=== PATIENT | female | born 1940 | race Caucasian/White ===

== ENCOUNTER → 2017-04-11 | Outpatient (CLI) | payer OTHER ==
[~2017-04-11] MED LIST: ASCA500 PO; ATOR-22 PO; C-Q 10; CLOP1TAB15 PO; MECL12.5 PO; MULT-506 PO; OMEG10007 PO; OMEP10CA2 PO; Vit B 12; [UNRECOGNIZED DRUG - OTHER]; metropolol
--- NOTE | 2017-04-11 12:42 | DIAGNOSTIC IMAGING REPORT ---
CHEST 2 VIEWS ROUTINE HISTORY: Cough. COMPARISON: Chest 05/22/2011. FINDINGS: The lungs are clear. The heart is normal in size. No pleural effusions. No pneumothorax. Coronary artery stent is noted. IMPRESSION: No acute process. Electronically signed by: Raza Barton M.D. 04/11/2017 12:41 PM Dictated Date/Time: 04/11/2017 12:38 PM
--- NOTE | 2017-04-11 12:52 | DIAGNOSTIC IMAGING REPORT ---
SINUSES MIN 3 VIEWS ROUTINE CLINICAL HISTORY: R05 [id number] dyspnea COMPARISON STUDY: None FINDINGS: Negative study. All major sinuses are considered clear. There are no air-fluid levels. There are no destructive lesions. IMPRESSION: Normal study The above report was generated using voice recognition software. It may contain grammatical, syntax or spelling errors. Electronically signed by: Johny Pastor M.D. 04/11/2017 12:51 PM Dictated Date/Time: 04/11/2017 12:47 PM
== END | disposition home or self-care (01) ==
LOC: C.LAB1850 12:08
PROVIDERS: ATTEND Physician Assistant
DX: R05 Cough (principal)

== ENCOUNTER 2024-12-06 19:25 | Observation (INO) ==
[2024-12-06] MEDS: diphenhydrAMINE 50 MG/ML VIAL IV ONE (19:54)
[2024-12-06 20:02] LABS: Hematocrit (blood only) 40.9 % (37.0-47.0); Hemoglobin 13.6 g/dl (12.0-16.0); Immature Granulocytes # (auto) 0.02 K/uL (0.01-0.20); Immature Granulocytes % (auto) 0.5 %; Mean Corpuscular Hemoglobin 30.6 pg (25.0-34.0); Mean Corpuscular Volume 91.9 fL (80.0-100.0); Platelet Count 163 K/uL (130-400); RDW Standard Deviation 44.9 fL (36.4-46.3); Red Blood Count 4.45 M/uL (4.20-5.40); White Blood Count 4.33 K/ul (4.8-10.8)
[2024-12-06] MEDS: OPTIRAY 320 125ml IV ONE (20:07)
[2024-12-06 20:37] LABS: Alanine Aminotransferase 13 U/L (7-52); Bilirubin,Total 0.6 mg/dl (0.2-1.0); Blood Urea Nitrogen 22 mg/dl (6-23); Calcium 9.5 mg/dl (8.6-10.3); Carbon Dioxide 25 mmol/L (21-32); Chloride 103 mmol/L (98-107); Creatinine Clr Calc Pharmacy 40.9 ml/min; Glucose 91 mg/dl (70-99(Fasting)); Total Protein 7.5 gm/dl (6.0-8.3)
--- NOTE | 2024-12-06 20:37 | CT Scan Report ---
Exam(s): CT HEAD Without Contrast EXAM: CT Head Without Intravenous Contrast CLINICAL HISTORY: Reason for exam: neuro deficit, acute stroke suspected. TECHNIQUE: Axial computed tomography images of the head/brain without intravenous contrast. CTDI is 38.43 mGy and DLP is 985.28 mGy-cm. Automated exposure control was utilized for the study. A dose lowering technique was utilized adhering to the principles of ALARA. COMPARISON: None. FINDINGS: Brain: Age-related parenchymal volume loss. Periventricular and deep cerebral white matter hypoattenuation suggesting chronic small vessel ischemic change. Buckley-white matter differentiation maintained. No hemorrhage, mass effect, parenchymal edema, or midline shift. Ventricles: No hydrocephalus. Bones/joints: No acute fracture. Soft tissues: Unremarkable. Vasculature: Intracranial atherosclerosis. Sinuses: Unremarkable as visualized. Mastoid air cells: No significant mastoid effusion. Orbits: Lens replacements. IMPRESSION: No acute intracranial process. Communications: Call Doctor Stroke Electronically signed by: Nelson Najera M.D. 12/06/24 20:36 PM
--- NOTE | 2024-12-06 20:39 | CT Scan Report ---
Exam(s): CTA HEAD With Contrast IV Amt: 119ml optiray 320 EXAM: CT Angiography Head With Intravenous Contrast CLINICAL HISTORY: Reason for exam: neuro deficit, acute stroke suspected. TECHNIQUE: Axial computed tomographic angiography images of the head with intravenous contrast. CTDI is 38.43 mGy and DLP is 985.28 mGy-cm. Automated exposure control was utilized for the study. A dose lowering technique was utilized adhering to the principles of ALARA. MIP reconstructed images were created and reviewed. CONTRAST: Patient received 119ml optiray 320 of IV contrast COMPARISON: Same-day head CT. FINDINGS: Right internal carotid artery: Extensive calcific plaquing intracranial right ICA producing mild stenosis in the cavernous segment. No aneurysm. Right anterior cerebral artery: Unremarkable. No occlusion or significant stenosis. No aneurysm. Right middle cerebral artery: Unremarkable. No occlusion or significant stenosis. No aneurysm. Right posterior cerebral artery: Unremarkable. No occlusion or significant stenosis. No aneurysm. Right vertebral artery: Unremarkable as visualized. Left internal carotid artery: Extensive calcific plaquing intracranial left ICA without significant stenosis. No aneurysm. Left anterior cerebral artery: Unremarkable. No occlusion or significant stenosis. No aneurysm. Left middle cerebral artery: Unremarkable. No occlusion or significant stenosis. No aneurysm. Left posterior cerebral artery: Unremarkable. No occlusion or significant stenosis. No aneurysm. Left vertebral artery: Unremarkable as visualized. Basilar artery: Unremarkable. No occlusion or significant stenosis. No aneurysm. IMPRESSION: Patent intracranial circulation. Communications: Call Doctor Stroke Electronically signed by: Nelson Najera M.D. 12/06/24 20:38 PM
--- NOTE | 2024-12-06 20:41 | CT Scan Report ---
Exam(s): CTA NECK With Contrast IV Amt: 119ml optiray 320 EXAM: CT Angiography Neck With Intravenous Contrast CLINICAL HISTORY: Reason for exam: neuro deficit, acute stroke suspected. TECHNIQUE: Routine carotid CT angiography protocol was performed with intravenous contrast. NASCET criteria using the distal ICAs for comparison were used for evaluation of stenoses. CTDI is 38.43 mGy and DLP is 985.28 mGy-cm. Automated exposure control was utilized for the study. A dose lowering technique was utilized adhering to the principles of ALARA. MIP reconstructed images were created and reviewed. CONTRAST: Patient received 119ml optiray 320 of IV contrast COMPARISON: None. FINDINGS: VASCULATURE: Right common carotid artery: Unremarkable. No occlusion or significant stenosis. No dissection. Right internal carotid artery: Calcific plaque producing severe stenosis of the right ICA origin. No dissection. Right external carotid artery: Stenotic origin. No occlusion. Right vertebral artery: Unremarkable. No occlusion or significant stenosis. No dissection. Left common carotid artery: Patent stented distal left common carotid artery. No occlusion or significant stenosis. No dissection. Left internal carotid artery: Patent stented proximal left ICA. Extracranial segment is patent with no occlusion or significant stenosis. No dissection. Left external carotid artery: Stenotic origin. No occlusion. Left vertebral artery: Unremarkable. No occlusion or significant stenosis. No dissection. Aorta: Bovine aortic arch anatomy. NECK: Bones/joints: Unremarkable. No acute fracture. Soft tissues: Unremarkable. Lung apices: Clear. CAROTID STENOSIS REFERENCE USING NASCET CRITERIA: % ICA stenosis = (1 - narrowest ICA diameter/diameter of distal cervical ICA) x 100. Mild - <50% stenosis. Moderate - 50-69% stenosis. Severe - 70-94% stenosis. Near occlusion - 95-99% stenosis. Occluded - 100% stenosis. IMPRESSION: Calcific plaque producing severe stenosis at the right ICA origin. Communications: Call Doctor Stroke Electronically signed by: Nelson Najera M.D. 12/06/24 20:40 PM
[2024-12-06] MEDS: ASPIRIN 81 MG CHEW PO STA (21:01)
--- NOTE | 2024-12-06 21:23 | XRay Report ---
Exam(s): XR CXR 1 VIEW EXAM: XR Chest, 1 View CLINICAL HISTORY: Reason for exam: neuro deficit, acute stroke suspected. TECHNIQUE: Frontal view of the chest. COMPARISON: No relevant prior studies available. FINDINGS: Lungs: No consolidation. Pleural space: No significant pleural effusion. No pneumothorax. Heart: No cardiomegaly or pulmonary vascular congestion. Bones/joints: No acute fracture. No dislocation. IMPRESSION: No evidence of acute cardiopulmonary disease. Electronically signed by: Nelson Najera M.D. 12/06/24 21:23 PM
--- NOTE | 2024-12-06 22:12 | Emergency Department Note ---
History of Present Illness General Chief complaint: TIA Symptoms Stated complaint: EYE IS BLURRY, BALANCE ISSUES, SPEACH, Time Seen by Provider: 12/06/24 19:31 History of Present Illness Provider complaint: Stroke symptoms Maximum Pain Intensity: 5 84-year-old female presents emergency department for stroke symptoms. Patient reports at 1500 she has felt like she could not get her words out and that she was having blurry vision. She reports double vision. Patient states she went to go see her technology assistant Dr. Altman who referred her to the emergency department. No headache. No falls or traumas. No blood thinners. Home Medications Medication Instructions Recorded Confirmed Type aspirin 81 mg tablet 81 mg PO BID 12/26/18 06/23/24 History atorvastatin 40 mg tablet 40 mg PO DAILY #30 tabs 12/26/18 06/23/24 History citalopram 20 mg tablet 20 mg PO DAILY #90 tabs 12/26/18 06/23/24 History clopidogrel 75 mg tablet 75 mg PO DAILY #90 tabs 12/26/18 06/23/24 History coenzyme Q10 100 mg capsule PO .TAKE DIRECTED. 12/26/18 06/23/24 History epinephrine 0.3 mg/0.3 mL IM .INJECT 0.3ML INTRAMU #1 ea 12/26/18 06/23/24 History injection, auto-injector levalbuterol HCl 1.25 mg/3 mL 1.25 mg inhalation .COMPLEX PRN 12/26/18 06/23/24 History solution for nebulization melatonin 3 mg tablet PO .TAKE DIRECTED. 12/26/18 06/23/24 History metoprolol succinate 25 mg PO .TAKE 1 TABLET DAILY. 12/26/18 06/23/24 History tablet,extended release 24 hr nitroglycerin 0.4 mg sublingual sublingual .PLACE 1 TABLET UNDER 12/26/18 06/23/24 History tablet omega-3 fatty acids 1,000 mg 1,000 mg PO DAILY 12/26/18 06/23/24 History capsule (Fish Oil Concentrate) pantoprazole 40 mg tablet,delayed PO .TAKE 1 TABLET DAILY. #90 tabs 12/26/18 06/23/24 History release diclofenac sodium 1 % topical gel 2 gm topical QID #100 grams 05/15/19 06/23/24 Rx (Voltaren) cyanocobalamin (vitamin B-12) 1,000 mcg PO DAILY 09/11/19 06/23/24 History 1,000 mcg capsule levothyroxine 88 mcg tablet PO .TAKE 1 TABLET DAILY. 03/30/22 06/23/24 History Flutter Valve #1 ea 04/06/22 06/23/24 Rx tocilizumab 162 mg/0.9 mL mg subcut .once a week 03/13/23 06/23/24 History subcutaneous syringe (Actemra) furosemide 20 mg tablet (Lasix) 20 mg PO DAILY 03/20/24 06/23/24 History prasugrel HCl 10 mg tablet 10 mg PO DAILY 03/20/24 06/23/24 History (Effient) albuterol sulfate 90 mcg/actuation 2 puff inhalation Q6H PRN 06/25/24 06/25/24 Rx aerosol inhaler Shortness Of Breath Or Wheezing #18 grams fluticasone 250 mcg-salmeterol 50 1 inh inhalation BID #60 ea 06/25/24 06/25/24 Rx mcg/dose blistr powdr for inhalation (Wixela Inhub) umeclidinium 62.5 mcg/actuation 1 inh inhalation DAILY #30 ea 06/25/24 06/25/24 Rx blister powder for inhalation (Incruse Ellipta) ipratropium 0.5 mg-albuterol 3 mg 3 ml inhalation Q8H PRN shortness 07/06/24 Rx (2.5 mg base)/3 mL nebulization of breath or wheezing #180 mL soln Allergies Allergy/AdvReac Type Severity Reaction Status Date / Time bee venom protein (honey bee) Allergy Unknown HIVES Verified 06/23/24 16:05 codeine Allergy Unknown HIVES Verified 06/23/24 16:05 cortisone Allergy Unknown Verified 06/23/24 16:05 hydromorphone [From Dilaudid] Allergy Unknown Verified 06/23/24 16:05 iodine Allergy Unknown Verified 06/23/24 16:05 methylprednisolone Allergy Unknown RASH Verified 06/23/24 16:05 morphine Allergy Unknown "GO BAZERK" Verified 06/23/24 16:05 Opioids - Morphine Analogues Allergy Unknown Verified 06/23/24 16:05 shellfish derived Allergy Unknown RASH Verified 06/23/24 16:05 Past Med/Surg History Problem List (Updated 12/06/24 @ 22:12 by Bayron Brizuela MD) Stroke-like symptoms (Acute) Multiple pulmonary nodules Exertional shortness of breath Allergic rhinitis with postnasal drip Hypersomnia COPD with emphysema History of tobacco use Pulmonary nodule seen on imaging study Chronic bronchitis Pleurisy Costochondritis Pleuritic chest pain Social History Smoking Status: Never smoker Tobacco Type: Cigarettes Age Started Using Tobacco: 14; Age Quit Using Tobacco: 62; packs per day: 1; Preferred Language: Luxembourgish Feels Safe at Home: Yes Physical Exam Vital Signs Vital Signs - 24 hr 12/06/24 19:29 12/06/24 19:37 12/06/24 19:39 Temperature 36.6 C Temperature Source Temporal Artery Scan Pulse Rate 60 63 63 Pulse Rate from SpO2 Sensor 62 Respiratory Rate 18 19 Respiratory Effort / Characteristics Non-Labored Spontaneous Respiratory Depth Normal Respiratory Pattern Regular Blood Pressure 153/67 H Blood Pressure Mean 95 Blood Pressure Position Sitting Pulse Oximetry 93 98 Oxygen Delivery Method Room Air Sepsis Recent Fever Within 48 Hours No Sepsis New/Unexplained Change in Mental Status N/A Sepsis Action Taken by Nursing No Action Required 12/06/24 19:45 12/06/24 19:57 12/06/24 20:13 Temperature Temperature Source Pulse Rate 57 L 56 L 74 Pulse Rate from SpO2 Sensor 56 L Respiratory Rate 15 18 12 Respiratory Effort / Characteristics Respiratory Depth Respiratory Pattern Blood Pressure 163/70 H 184/87 H Blood Pressure Mean 101 113 Blood Pressure Position Pulse Oximetry 97 Oxygen Delivery Method Sepsis Recent Fever Within 48 Hours Sepsis New/Unexplained Change in Mental Status Sepsis Action Taken by Nursing 12/06/24 20:27 12/06/24 20:45 12/06/24 20:54 Temperature Temperature Source Pulse Rate 68 69 66 Pulse Rate from SpO2 Sensor 67 65 Respiratory Rate 20 20 19 Respiratory Effort / Characteristics Respiratory Depth Respiratory Pattern Blood Pressure Blood Pressure Mean Blood Pressure Position Pulse Oximetry 92 94 Oxygen Delivery Method Sepsis Recent Fever Within 48 Hours Sepsis New/Unexplained Change in Mental Status Sepsis Action Taken by Nursing 12/06/24 21:02 12/06/24 21:15 12/06/24 21:45 Temperature Temperature Source Pulse Rate 80 70 70 Pulse Rate from SpO2 Sensor 69 Respiratory Rate 24 28 H 15 Respiratory Effort / Characteristics Respiratory Depth Respiratory Pattern Blood Pressure 162/57 H 169/65 H 152/57 H Blood Pressure Mean 108 104 88 Blood Pressure Position Pulse Oximetry 94 97 96 Oxygen Delivery Method Room Air Room Air Room Air Sepsis Recent Fever Within 48 Hours Sepsis New/Unexplained Change in Mental Status Sepsis Action Taken by Nursing Physical Exam GENERAL: oriented to person, place, and time. appears well-developed and well- nourished. HENT: Exam performed. - Head: Normocephalic and atraumatic. EYES: Conjunctivae and EOM are normal. Right eye exhibits no discharge. Left eye exhibits no discharge. No scleral icterus. Pupils are dilated 4 mm and nonreactive bilaterally. Visual acuity: Right eye: 20/200 left eye: 20/50 -1 NECK: Normal range of motion. Neck supple. No JVD present. CV: Normal rate, regular rhythm, normal heart sounds and intact distal pulses. There is no peripheral edema. Palpable radial pulses bue. PULM/CHEST: Effort normal and breath sounds normal. No respiratory distress. No stridor. no wheezes. no rales. ABD: The abdomen is soft. There is no tenderness. NEURO:NIHSS: 2 (3:1, 9:1) Course Course 1930: The patient was evaluated in room A10. A complete history and physical exam was performed Cardiac monitoring: An order was placed for continuous cardiac monitoring. The monitor shows a rate of 60 with sinus rhythm interpreted by me Patient is out of window for TNKase. No code stroke called. 2049: Vitals stable. Labs and imaging are unremarkable. Patient was referred here after being evaluate by ophthalmology and will be admitted for strokelike symptoms. Administered Medications Discontinued Medications Aspirin (Aspirin 81 Mg Chew) 324 mg PO NOW STA Stop: 12/06/24 20:46 Last Admin: 12/06/24 21:01 Dose: 324 mg Documented By: TWYLA Diphenhydramine HCl (Diphenhydramine 50 Mg/Ml Vial) 50 mg IV ONE ONE Stop: 12/06/24 19:39 Last Admin: 12/06/24 19:54 Dose: 50 mg Documented By: TWYLA Ioversol (Optiray 320 125ml) 119 ml IV ONCE ONE Stop: 12/06/24 20:08 Last Admin: 12/06/24 20:07 Dose: 119 ml Documented By: DEEPA Methylprednisolone (Methylprednisolone 125 Mg/2 Ml Vial) 40 mg IV NOW ONE Stop: 12/06/24 19:39 Last Admin: 12/06/24 19:58 Dose: 40 mg Documented By: TWYLA Medical Decision Making Laboratory Data Attestation: I reviewed the patient's lab results. 12/06/24 19:43 12/06/24 19:43 Lab Results 12/06/24 12/06/24 Range/Units 19:43 19:49 WBC 4.33 L (4.8-10.8) K/ul RBC 4.45 (4.20-5.40) M/uL Hgb 13.6 (12.0-16.0) g/dl POC Hgb 13.9 (12.0-16.0) g/dl Hct 40.9 (37.0-47.0) % POC Hct 41 (37-47) % MCV 91.9 (80.0-100.0) fL MCH 30.6 (25.0-34.0) pg MCHC 33.3 (32.0-36.0) g/dL RDW Std Deviation 44.9 (36.4-46.3) fL RDW Coeff of Raquel 13.2 (11.5-14.5) % Plt Count 163 (130-400) K/uL MPV 9.5 (9.4-12.4) fL Immature Gran % (Auto) 0.5 % Neut % (Auto) 54.1 % Lymph % (Auto) 31.6 % Berks % (Auto) 11.8 % Eos % (Auto) 1.8 % Baso % (Auto) 0.2 % Neut # (Auto) 2.34 (1.40-6.50) K/uL Lymph # (Auto) 1.37 (1.20-3.40) K/uL Berks # (Auto) 0.51 (0.11-0.59) K/uL Eos # (Auto) 0.08 (0.00-0.50) K/uL Baso # (Auto) 0.01 (0.00-0.20) K/uL Immature Gran # (Auto) 0.02 (0.01-0.20) K/uL PT Cancelled INR Cancelled APTT Cancelled PTT Ratio Cancelled POC Sodium 135 (135-144) mmol/L Sodium TNP POC Potassium 5.6 H (3.3-5.0) mmol/L Potassium TNP POC Chloride 106 (101-112) mmol/L Chloride 103 (98-107) mmol/L Carbon Dioxide 25 (21-32) mmol/L POC Total CO2 25 (24-31) mmol/L Anion Gap TNP POC Anion Gap 11.0 L (16-25) mmol/L POC BUN 32 H (7-18) mg/dl BUN 22 (6-23) mg/dl Creatinine 0.98 (0.6-1.2) mg/dl POC Creatinine 1.2 (0.6-1.3) mg/dl Est Cr Clr Drug Dosing 40.9 ml/min eGFR 57.27 BUN/Creatinine Ratio 22.4 H (10-20) Glucose 91 (70-99(Fasting)) mg/dl POC Glucose (other) 92 (70-99) mg/dl Calcium 9.5 (8.6-10.3) mg/dl POC Ioniz Calcium Cristobal 1.11 L (1.12-1.32) mmol/l Magnesium TNP Total Bilirubin 0.6 (0.2-1.0) mg/dl AST TNP ALT 13 (7-52) U/L Alkaline Phosphatase TNP Troponin I High Sens 6.6 (0-14) pg/ml Total Protein 7.5 (6.0-8.3) gm/dl Albumin TNP Globulin TNP Albumin/Globulin Ratio TNP Imaging Data Attestation: I personally reviewed and interpreted this imaging study as follows: My Impression: Chest x-ray negative. Airway clear. No pneumothorax. No consolidation. No cardiomegaly or cephalization.. No free air under the diaphragm. No fractures of the skeletal structures. Radiologist's Impression: Chest X-Ray 12/06/24 19:38 Exam(s): XR CXR 1 VIEW EXAM: XR Chest, 1 View CLINICAL HISTORY: Reason for exam: neuro deficit, acute stroke suspected. TECHNIQUE: Frontal view of the chest. COMPARISON: No relevant prior studies available. FINDINGS: Lungs: No consolidation. Pleural space: No significant pleural effusion. No pneumothorax. Heart: No cardiomegaly or pulmonary vascular congestion. Bones/joints: No acute fracture. No dislocation. IMPRESSION: No evidence of acute cardiopulmonary disease. Electronically signed by: Nelson Najera M.D. 12/06/24 21:[address] 12/06/24 19:38 CR Exam(s): CT HEAD Without Contrast EXAM: CT Head Without Intravenous Contrast CLINICAL HISTORY: Reason for exam: neuro deficit, acute stroke suspected. TECHNIQUE: Axial computed tomography images of the head/brain without intravenous contrast. CTDI is 38.43 mGy and DLP is 985.28 mGy-cm. Automated exposure control was utilized for the study. A dose lowering technique was utilized adhering to the principles of ALARA. COMPARISON: None. FINDINGS: Brain: Age-related parenchymal volume loss. Periventricular and deep cerebral white matter hypoattenuation suggesting chronic small vessel ischemic change. Buckley-white matter differentiation maintained. No hemorrhage, mass effect, parenchymal edema, or midline shift. Ventricles: No hydrocephalus. Bones/joints: No acute fracture. Soft tissues: Unremarkable. Vasculature: Intracranial atherosclerosis. Sinuses: Unremarkable as visualized. Mastoid air cells: No significant mastoid effusion. Orbits: Lens replacements. IMPRESSION: No acute intracranial process. Communications: Call Doctor Stroke Electronically signed by: Nelson Najera M.D. 12/06/24 20:36 PM Head CTA 12/06/24 19:38 CR Exam(s): CTA HEAD With Contrast IV Amt: 119ml optiray 320 EXAM: CT Angiography Head With Intravenous Contrast CLINICAL HISTORY: Reason for exam: neuro deficit, acute stroke suspected. TECHNIQUE: Axial computed tomographic angiography images of the head with intravenous contrast. CTDI is 38.43 mGy and DLP is 985.28 mGy-cm. Automated exposure control was utilized for the study. A dose lowering technique was utilized adhering to the principles of ALARA. MIP reconstructed images were created and reviewed. CONTRAST: Patient received 119ml optiray 320 of IV contrast COMPARISON: Same-day head CT. FINDINGS: Right internal carotid artery: Extensive calcific plaquing intracranial right ICA producing mild stenosis in the cavernous segment. No aneurysm. Right anterior cerebral artery: Unremarkable. No occlusion or significant stenosis. No aneurysm. Right middle cerebral artery: Unremarkable. No occlusion or significant stenosis. No aneurysm. Right posterior cerebral artery: Unremarkable. No occlusion or significant stenosis. No aneurysm. Right vertebral artery: Unremarkable as visualized. Left internal carotid artery: Extensive calcific plaquing intracranial left ICA without significant stenosis. No aneurysm. Left anterior cerebral artery: Unremarkable. No occlusion or significant stenosis. No aneurysm. Left middle cerebral artery: Unremarkable. No occlusion or significant stenosis. No aneurysm. Left posterior cerebral artery: Unremarkable. No occlusion or significant stenosis. No aneurysm. Left vertebral artery: Unremarkable as visualized. Basilar artery: Unremarkable. No occlusion or significant stenosis. No aneurysm. IMPRESSION: Patent intracranial circulation. Communications: Call Doctor Stroke Electronically signed by: Nelson Najera M.D. 12/06/24 20:38 PM Neck CTA 12/06/24 19:38 CR Exam(s): CTA NECK With Contrast IV Amt: 119ml optiray 320 EXAM: CT Angiography Neck With Intravenous Contrast CLINICAL HISTORY: Reason for exam: neuro deficit, acute stroke suspected. TECHNIQUE: Routine carotid CT angiography protocol was performed with intravenous contrast. NASCET criteria using the distal ICAs for comparison were used for evaluation of stenoses. CTDI is 38.43 mGy and DLP is 985.28 mGy-cm. Automated exposure control was utilized for the study. A dose lowering technique was utilized adhering to the principles of ALARA. MIP reconstructed images were created and reviewed. CONTRAST: Patient received 119ml optiray 320 of IV contrast COMPARISON: None. FINDINGS: VASCULATURE: Right common carotid artery: Unremarkable. No occlusion or significant stenosis. No dissection. Right internal carotid artery: Calcific plaque producing severe stenosis of the right ICA origin. No dissection. Right external carotid artery: Stenotic origin. No occlusion. Right vertebral artery: Unremarkable. No occlusion or significant stenosis. No dissection. Left common carotid artery: Patent stented distal left common carotid artery. No occlusion or significant stenosis. No dissection. Left internal carotid artery: Patent stented proximal left ICA. Extracranial segment is patent with no occlusion or significant stenosis. No dissection. Left external carotid artery: Stenotic origin. No occlusion. Left vertebral artery: Unremarkable. No occlusion or significant stenosis. No dissection. Aorta: Bovine aortic arch anatomy. NECK: Bones/joints: Unremarkable. No acute fracture. Soft tissues: Unremarkable. Lung apices: Clear. CAROTID STENOSIS REFERENCE USING NASCET CRITERIA: % ICA stenosis = (1 - narrowest ICA diameter/diameter of distal cervical ICA) x 100. Mild - <50% stenosis. Moderate - 50-69% stenosis. Severe - 70-94% stenosis. Near occlusion - 95-99% stenosis. Occluded - 100% stenosis. IMPRESSION: Calcific plaque producing severe stenosis at the right ICA origin. Communications: Call Doctor Stroke Electronically signed by: Nelson Najera M.D. 12/06/24 20:40 PM ECG Data Attestation: I personally reviewed and interpreted this ECG as follows: Rate (beats per minute): 59 Rhythm: + normal sinus ECG Intervals/blocks: + Left bundle branch block Additional Comments: MA 198 QRS 142 QTc 473 Sgarbossa negative MDM Narrative 1930: The patient was evaluated in room A10. A complete history and physical exam was performed Cardiac monitoring: An order was placed for continuous cardiac monitoring. The monitor shows a rate of 60 with sinus rhythm interpreted by me Patient is out of window for TNKase. No code stroke called. 2049: Vitals stable. Labs and imaging are unremarkable. Patient was referred here after being evaluate by ophthalmology and will be admitted for strokelike symptoms. Impression & Plan Stroke-like symptoms Discharge Plan Visit Data Chief Complaint: TIA Symptoms Stated Complaint: EYE IS BLURRY, BALANCE ISSUES, SPEACH, ED Provider: Bayron Brizuela Discharge Problem: Stroke-like symptoms Patient Disposition: Admitted As Inpatient Condition: Fair Forms Stand Alone Forms: My [facility] Prescriptions Prescriptions: No Action ipratropium-albuterol 0.5 mg-3 mg(2.5 mg base)/3 mL solution for nebulization 3 ml inhalation Q8H PRN (Reason: shortness of breath or wheezing) Qty: 180 3RF coenzyme Q10 100 mg capsule PO .TAKE DIRECTED. epinephrine 0.3 mg/0.3 mL auto-injector IM .INJECT 0.3ML INTRAMU Qty: 1 metoprolol succinate 25 mg tablet extended release 24 hr PO .TAKE 1 TABLET DAILY. nitroglycerin 0.4 mg tablet, sublingual SL .PLACE 1 TABLET UNDER omega-3 fatty acids [Fish Oil Concentrate] 1,000 mg capsule 1,000 mg PO DAILY levalbuterol HCl 1.25 mg/3 mL solution for nebulization 1.25 mg inhalation .COMPLEX PRN Patient Comments: 1.25 mg inhalation Every 4 to 6 hours PRN; Rx Instructions: 1.25 mg inhalation Every 4 to 6 hours PRN; melatonin 3 mg tablet PO .TAKE DIRECTED. pantoprazole 40 mg tablet,delayed release (DR/EC) PO .TAKE 1 TABLET DAILY. Qty: 90 aspirin 81 mg tablet 81 mg PO BID atorvastatin 40 mg tablet 40 mg PO DAILY Qty: 30 citalopram 20 mg tablet 20 mg PO DAILY Qty: 90 clopidogrel 75 mg tablet 75 mg PO DAILY Qty: 90 levothyroxine 88 mcg tablet PO .TAKE 1 TABLET DAILY. Patient Comments: on saturday and patient takes 1.5 pills cyanocobalamin (vitamin B-12) 1,000 mcg capsule 1,000 mcg PO DAILY diclofenac sodium [Voltaren] 1 % gel 2 gm TOP QID Qty: 100 4RF Rx Instructions: apply to single elbow, wrist or hand; for hand includes palm/fingers/back of hand (DME) Flutter Valve Device See Rx Instructions .MEDSUPPLY Qty: 1 0RF Rx Instructions: Use it every 6 hours when awake. Actemra 162 mg/0.9 mL syringe subcut .once a week prasugrel HCl [Effient] 10 mg tablet 10 mg PO DAILY furosemide [Lasix] 20 mg tablet 20 mg PO DAILY albuterol sulfate 90 mcg/actuation HFA aerosol inhaler 2 puff inhalation Q6H PRN (Reason: Shortness Of Breath Or Wheezing) Qty: 18 3RF fluticasone propion-salmeterol [Wixela Inhub] 250-50 mcg/dose blister with device 1 inh inhalation BID Qty: 60 12RF Incruse Ellipta 62.5 mcg/actuation blister with device 1 inh inhalation DAILY Qty: 30 12RF Referrals Referrals: Ace James [Primary Care Provider] -
[2024-12-06 22:16] LABS: Alkaline Phosphatase 59.0 U/L (34-104); Magnesium 2.2 mg/dl (1.7-2.4); Potassium 4.2 mmol/L (3.5-5.1); Sodium 135.0 mmol/L (136-145)
[2024-12-06 22:24] LABS: INR 1.0 (0.9-1.1); Partial Thromboplastin Time 26 Seconds (21-31); Prothrombin Time 10.6 Seconds (9.0-12.0)
--- NOTE | 2024-12-06 22:39 | History & Physical Report ---
Date of Service December 06, 2024 Assessment & Plan (1) Stroke-like symptoms: Plan: Assessment and plan below following discussion of case with ED provider and reviewing patient history/pertinent normal/abnormal diagnostic test results. 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) hx PVD hyperlipidemia on statin Rx hx COPD, lung status at baseline hypothyroidism, euthyroid as of recent outpatient TSH May 2024 PMR; giant cell arteritis on Actemra as per records, patient follows with [facility], history jitteriness from previous steroid Rx as per note gait ataxia disorder as per records, patient previously evaluated by [facility] [place] neurologist past tobacco abuse OBS Admit to med/tele Neurochecks Continue DAPT and statin Rx for secondary stroke prevention (Need to obtain complete medication list from patient's as patient unsure about most of her medications.) Permissive hypertension for now MRI brain, TTE for stroke workup Neurology consult Re: Strokelike symptoms Update lipid profile DVT prophylaxis. Lovenox subcu Full code Patient requesting for to be given updates regarding care. Mr. Jayden Curtis, contact #[phone]. Text document was generated using [employer] voice recognition software. It may contain grammatical or spelling errors. Kindly contact undersigned for clarification of any documentation item in question. History of Present Illness Chief Complaint: Blurred vision right eye Primary Care Provider: Ace James History obtained from patient and records. Medical history significant for chronic systolic heart failure (EF 45 to 50%, TTE 2024), CAD status post stent (2023), valvular heart disease (mild MR/trace TR), PAF, PVD, hypertension, hyperlipidemia, COPD, pulmonary nodules, hypothyroidism, gastric ulcer, IBS, MGUS, PMR, giant cell arteritis on Actemra as per records, gait ataxia disorder as per records, anxiety/mood disorder, past tobacco abuse. Patient had sudden onset blurred vision on right eye around 3 PM today. Had trouble getting the right words out. No eye pain. No unusual headaches. No slurred speech, focal arm or leg weakness. Usual gait instability as per patient. Denies chest pain, SOB. Patient's local inspecting and testing lead hand recommended evaluation at the clinic. Banking Assistant recommended ER evaluation for stroke workup. Highest SBP of 180s documented at the ER. Medical History as above Surgical History : Temporal artery biopsy, back surgery, appendectomy, cholecystectomy, cystocele/rectocele repair, finger trigger release, NIRMALA Family History : Heart disease Personal/Social history : Past tobacco abuse, no EtOH intake, retired school cafeteria employee Allergies Allergy/AdvReac Type Severity Reaction Status Date / Time bee venom protein (honey bee) Allergy Unknown HIVES Verified 06/23/24 16:05 codeine Allergy Unknown HIVES Verified 06/23/24 16:05 cortisone Allergy Unknown Verified 06/23/24 16:05 hydromorphone [From Dilaudid] Allergy Unknown Verified 06/23/24 16:05 iodine Allergy Unknown Verified 06/23/24 16:05 methylprednisolone Allergy Unknown RASH Verified 06/23/24 16:05 morphine Allergy Unknown "GO BAZERK" Verified 06/23/24 16:05 Opioids - Morphine Analogues Allergy Unknown Verified 06/23/24 16:05 shellfish derived Allergy Unknown RASH Verified 06/23/24 16:05 Home Medications Medication Instructions Recorded Confirmed Type aspirin 81 mg tablet 81 mg PO BID 12/26/18 06/23/24 History atorvastatin 40 mg tablet 40 mg PO DAILY #30 tabs 12/26/18 06/23/24 History citalopram 20 mg tablet 20 mg PO DAILY #90 tabs 12/26/18 06/23/24 History coenzyme Q10 100 mg capsule PO .TAKE DIRECTED. 12/26/18 06/23/24 History epinephrine 0.3 mg/0.3 mL IM .INJECT 0.3ML INTRAMU #1 ea 12/26/18 06/23/24 History injection, auto-injector levalbuterol HCl 1.25 mg/3 mL 1.25 mg inhalation .COMPLEX PRN 12/26/18 06/23/24 History solution for nebulization melatonin 3 mg tablet PO .TAKE DIRECTED. 12/26/18 06/23/24 History metoprolol succinate 25 mg PO .TAKE 1 TABLET DAILY. 12/26/18 06/23/24 History tablet,extended release 24 hr nitroglycerin 0.4 mg sublingual sublingual .PLACE 1 TABLET UNDER 12/26/18 06/23/24 History tablet omega-3 fatty acids 1,000 mg 1,000 mg PO DAILY 12/26/18 06/23/24 History capsule (Fish Oil Concentrate) pantoprazole 40 mg tablet,delayed PO .TAKE 1 TABLET DAILY. #90 tabs 12/26/18 06/23/24 History release diclofenac sodium 1 % topical gel 2 gm topical QID #100 grams 05/15/19 06/23/24 Rx (Voltaren) cyanocobalamin (vitamin B-12) 1,000 mcg PO DAILY 09/11/19 06/23/24 History 1,000 mcg capsule levothyroxine 88 mcg tablet PO .TAKE 1 TABLET DAILY. 03/30/22 06/23/24 History Flutter Valve #1 ea 04/06/22 06/23/24 Rx tocilizumab 162 mg/0.9 mL mg subcut .once a week 03/13/23 06/23/24 History subcutaneous syringe (Actemra) furosemide 20 mg tablet (Lasix) 20 mg PO DAILY 03/20/24 06/23/24 History prasugrel HCl 10 mg tablet 10 mg PO DAILY 03/20/24 06/23/24 History (Effient) albuterol sulfate 90 mcg/actuation 2 puff inhalation Q6H PRN 06/25/24 06/25/24 Rx aerosol inhaler Shortness Of Breath Or Wheezing #18 grams fluticasone 250 mcg-salmeterol 50 1 inh inhalation BID #60 ea 06/25/24 06/25/24 Rx mcg/dose blistr powdr for inhalation (Wixela Inhub) umeclidinium 62.5 mcg/actuation 1 inh inhalation DAILY #30 ea 06/25/24 06/25/24 Rx blister powder for inhalation (Incruse Ellipta) ipratropium 0.5 mg-albuterol 3 mg 3 ml inhalation Q8H PRN shortness 07/06/24 Rx (2.5 mg base)/3 mL nebulization of breath or wheezing #180 mL soln Past Med/Surg History Problem List (Updated 12/06/24 @ 22:12 by Bayron Brizuela MD) Stroke-like symptoms (Acute) Multiple pulmonary nodules Exertional shortness of breath Allergic rhinitis with postnasal drip Hypersomnia COPD with emphysema History of tobacco use Pulmonary nodule seen on imaging study Chronic bronchitis Pleurisy Costochondritis Pleuritic chest pain Social History Smoking Status: Former smoker Tobacco Type: Cigarettes Age Started Using Tobacco: 14; Age Quit Using Tobacco: 62; packs per day: 1; Hx Alcohol Use: No Hx Substance Use: No Preferred Language: Zimbabwean Communication Ability: Effective Lot Associate Required: No Beliefs That Will Affect Care: None Current Living Situation: Spouse Other Information That Helps Us Care for You: No Feels Safe at Home: Yes Safety Concerns: Feels Safe At This Time Assistive Devices: Denture - Upper, Denture - Lower and Glasses Review of Systems Review of Systems: As per HPI, all other systems reviewed and negative Physical Exam Physical Exam: GENERAL: Comfortable, pleasant, obese, no respiratory distress SKIN: Normal color, warm HEENT: Cushing palpebral conjunctivae, no ptosis, dry buccal mucosa NECK : Supple, no tenderness CHEST : Decreased breath sounds, no tenderness HEART : RRR, no obvious murmurs ABDOMEN: Some distention, nontender EXTREMITIES : No LE swelling/tenderness, palpable pulses, no other conspicuous d eformities noted NEUROLOGIC : Coherent, VA OD counting fingers, OS can read print, no facial asymmetry, MMTS BUE/LUE, 4/5; gait and stance not assessed Results & Data Results & Data Vital Signs (Past 12 Hours) Vital Signs Temp Pulse Resp BP Pulse Ox O2 Del Method 12/06/24 21:45 70 15 152/57 H 96 Room Air 12/06/24 21:15 70 28 H 169/65 H 97 Room Air 12/06/24 21:02 80 24 162/57 H 94 Room Air 12/06/24 20:54 66 19 94 12/06/24 20:45 69 20 12/06/24 20:27 68 20 92 12/06/24 20:13 74 12 184/87 H 12/06/24 19:57 56 L 18 163/70 H 97 12/06/24 19:45 57 L 15 12/06/24 19:39 63 19 98 12/06/24 19:37 63 12/06/24 19:29 36.6 C 60 18 153/67 H 93 Room Air Laboratory Results Laboratory Results WBC 4.33 K/ul (4.8-10.8) L 12/06/24 19:43 RBC 4.45 M/uL (4.20-5.40) 12/06/24 19:43 Hgb 13.6 g/dl (12.0-16.0) 12/06/24 19:43 POC Hgb 13.9 g/dl (12.0-16.0) 12/06/24 19:49 Hct 40.9 % (37.0-47.0) 12/06/24 19:43 POC Hct 41 % (37-47) 12/06/24 19:49 MCV 91.9 fL (80.0-100.0) 12/06/24 19:43 MCH 30.6 pg (25.0-34.0) 12/06/24 19:43 MCHC 33.3 g/dL (32.0-36.0) 12/06/24 19:43 RDW Std Deviation 44.9 fL (36.4-46.3) 12/06/24 19:43 RDW Coeff of Raquel 13.2 % (11.5-14.5) 12/06/24 19:43 Plt Count 163 K/uL (130-400) 12/06/24 19:43 MPV 9.5 fL (9.4-12.4) 12/06/24 19:43 Immature Gran % (Auto) 0.5 % 12/06/24 19:43 Neut % (Auto) 54.1 % 12/06/24 19:43 Lymph % (Auto) 31.6 % 12/06/24 19:43 [place] % (Auto) 11.8 % 12/06/24 19:43 Eos % (Auto) 1.8 % 12/06/24 19:43 Baso % (Auto) 0.2 % 12/06/24 19:43 Neut # (Auto) 2.34 K/uL (1.40-6.50) 12/06/24 19:43 Lymph # (Auto) 1.37 K/uL (1.20-3.40) 12/06/24 19:43 [place] # (Auto) 0.51 K/uL (0.11-0.59) 12/06/24 19:43 Eos # (Auto) 0.08 K/uL (0.00-0.50) 12/06/24 19:43 Baso # (Auto) 0.01 K/uL (0.00-0.20) 12/06/24 19:43 Immature Gran # (Auto) 0.02 K/uL (0.01-0.20) 12/06/24 19:43 PT 10.6 Seconds (9.0-12.0) 12/06/24: INR 1.0 (0.9-1.1) 12/06/24: APTT 26 Seconds (21-31) 12/06/24: PTT Ratio 1.0 12/06/24: POC Sodium 135 mmol/L (135-144) 12/06/24 19:49 Sodium 135 mmol/L (136-145) L 12/06/24 21: POC Potassium 5.6 mmol/L (3.3-5.0) H 12/06/24 19:49 Potassium 4.2 mmol/L (3.5-5.1) 12/06/24 21: POC Chloride 106 mmol/L (101-112) 12/06/24 19:49 Chloride 103 mmol/L (98-107) 12/06/24 19:43 Carbon Dioxide 25 mmol/L (21-32) 12/06/24 19:43 POC Total CO2 25 mmol/L (24-31) 12/06/24 19:49 Anion Gap TNP 12/06/24 19:43 POC Anion Gap 11.0 mmol/L (16-25) L 12/06/24 19:49 POC BUN 32 mg/dl (7-18) H 12/06/24 19:49 BUN 22 mg/dl (6-23) 12/06/24 19:43 Creatinine 0.98 mg/dl (0.6-1.2) 12/06/24 19:43 POC Creatinine 1.2 mg/dl (0.6-1.3) 12/06/24 19:49 Est Cr Clr Drug Dosing 40.9 ml/min 12/06/24 19:43 eGFR 57.27 12/06/24 19:43 BUN/Creatinine Ratio 22.4 (10-20) H 12/06/24 19:43 Glucose 91 mg/dl (70-99(Fasting)) 12/06/24 19:43 POC Glucose (other) 92 mg/dl (70-99) 12/06/24 19:49 Calcium 9.5 mg/dl (8.6-10.3) 12/06/24 19:43 POC Ioniz Calcium Cristobal 1.11 mmol/l (1.12-1.32) L 12/06/24 19:49 Magnesium 2.2 mg/dl (1.7-2.4) 12/06/24 21: Total Bilirubin 0.6 mg/dl (0.2-1.0) 12/06/24 19:43 AST 20 U/L (13-39) 12/06/24 21: ALT 13 U/L (7-52) 12/06/24 19:43 Alkaline Phosphatase 59 U/L (34-104) 12/06/24 21: Troponin I High Sens 6.6 pg/ml (0-14) 12/06/24 19:43 Total Protein 7.5 gm/dl (6.0-8.3) 12/06/24 19:43 Albumin 4.2 gm/dl (3.4-5.0) 12/06/24 21:27 Globulin TNP 12/06/24 19:43 Albumin/Globulin Ratio TNP 12/06/24 19:43 Blood Type A Positive 12/06/24 21: Antibody Screen NEGATIVE 12/06/24 21:27 Impressions Chest X-Ray 12/06/24 19:38 Exam(s): XR CXR 1 VIEW EXAM: XR Chest, 1 View CLINICAL HISTORY: Reason for exam: neuro deficit, acute stroke suspected. TECHNIQUE: Frontal view of the chest. COMPARISON: No relevant prior studies available. FINDINGS: Lungs: No consolidation. Pleural space: No significant pleural effusion. No pneumothorax. Heart: No cardiomegaly or pulmonary vascular congestion. Bones/joints: No acute fracture. No dislocation. IMPRESSION: No evidence of acute cardiopulmonary disease. Electronically signed by: Nelson Najera M.D. 12/06/24 21:[address] 12/06/24 19:38 CR Exam(s): CT HEAD Without Contrast EXAM: CT Head Without Intravenous Contrast CLINICAL HISTORY: Reason for exam: neuro deficit, acute stroke suspected. TECHNIQUE: Axial computed tomography images of the head/brain without intravenous contrast. CTDI is 38.43 mGy and DLP is 985.28 mGy-cm. Automated exposure control was utilized for the study. A dose lowering technique was utilized adhering to the principles of ALARA. COMPARISON: None. FINDINGS: Brain: Age-related parenchymal volume loss. Periventricular and deep cerebral white matter hypoattenuation suggesting chronic small vessel ischemic change. Buckley-white matter differentiation maintained. No hemorrhage, mass effect, parenchymal edema, or midline shift. Ventricles: No hydrocephalus. Bones/joints: No acute fracture. Soft tissues: Unremarkable. Vasculature: Intracranial atherosclerosis. Sinuses: Unremarkable as visualized. Mastoid air cells: No significant mastoid effusion. Orbits: Lens replacements. IMPRESSION: No acute intracranial process. Communications: Call Doctor Stroke Electronically signed by: Nelson Najera M.D. 12/06/24 20:36 PM Head CTA 12/06/24 19:38 CR Exam(s): CTA HEAD With Contrast IV Amt: 119ml optiray 320 EXAM: CT Angiography Head With Intravenous Contrast CLINICAL HISTORY: Reason for exam: neuro deficit, acute stroke suspected. TECHNIQUE: Axial computed tomographic angiography images of the head with intravenous contrast. CTDI is 38.43 mGy and DLP is 985.28 mGy-cm. Automated exposure control was utilized for the study. A dose lowering technique was utilized adhering to the principles of ALARA. MIP reconstructed images were created and reviewed. CONTRAST: Patient received 119ml optiray 320 of IV contrast COMPARISON: Same-day head CT. FINDINGS: Right internal carotid artery: Extensive calcific plaquing intracranial right ICA producing mild stenosis in the cavernous segment. No aneurysm. Right anterior cerebral artery: Unremarkable. No occlusion or significant stenosis. No aneurysm. Right middle cerebral artery: Unremarkable. No occlusion or significant stenosis. No aneurysm. Right posterior cerebral artery: Unremarkable. No occlusion or significant stenosis. No aneurysm. Right vertebral artery: Unremarkable as visualized. Left internal carotid artery: Extensive calcific plaquing intracranial left ICA without significant stenosis. No aneurysm. Left anterior cerebral artery: Unremarkable. No occlusion or significant stenosis. No aneurysm. Left middle cerebral artery: Unremarkable. No occlusion or significant stenosis. No aneurysm. Left posterior cerebral artery: Unremarkable. No occlusion or significant stenosis. No aneurysm. Left vertebral artery: Unremarkable as visualized. Basilar artery: Unremarkable. No occlusion or significant stenosis. No aneurysm. IMPRESSION: Patent intracranial circulation. Communications: Call Doctor Stroke Electronically signed by: Nelson Najera M.D. 12/06/24 20:38 PM Neck CTA 12/06/24 19:38 CR Exam(s): CTA NECK With Contrast IV Amt: 119ml optiray 320 EXAM: CT Angiography Neck With Intravenous Contrast CLINICAL HISTORY: Reason for exam: neuro deficit, acute stroke suspected. TECHNIQUE: Routine carotid CT angiography protocol was performed with intravenous contrast. NASCET criteria using the distal ICAs for comparison were used for evaluation of stenoses. CTDI is 38.43 mGy and DLP is 985.28 mGy-cm. Automated exposure control was utilized for the study. A dose lowering technique was utilized adhering to the principles of ALARA. MIP reconstructed images were created and reviewed. CONTRAST: Patient received 119ml optiray 320 of IV contrast COMPARISON: None. FINDINGS: VASCULATURE: Right common carotid artery: Unremarkable. No occlusion or significant stenosis. No dissection. Right internal carotid artery: Calcific plaque producing severe stenosis of the right ICA origin. No dissection. Right external carotid artery: Stenotic origin. No occlusion. Right vertebral artery: Unremarkable. No occlusion or significant stenosis. No dissection. Left common carotid artery: Patent stented distal left common carotid artery. No occlusion or significant stenosis. No dissection. Left internal carotid artery: Patent stented proximal left ICA. Extracranial segment is patent with no occlusion or significant stenosis. No dissection. Left external carotid artery: Stenotic origin. No occlusion. Left vertebral artery: Unremarkable. No occlusion or significant stenosis. No dissection. Aorta: Bovine aortic arch anatomy. NECK: Bones/joints: Unremarkable. No acute fracture. Soft tissues: Unremarkable. Lung apices: Clear. CAROTID STENOSIS REFERENCE USING NASCET CRITERIA: % ICA stenosis = (1 - narrowest ICA diameter/diameter of distal cervical ICA) x 100. Mild - <50% stenosis. Moderate - 50-69% stenosis. Severe - 70-94% stenosis. Near occlusion - 95-99% stenosis. Occluded - 100% stenosis. IMPRESSION: Calcific plaque producing severe stenosis at the right ICA origin. Communications: Call Doctor Stroke Electronically signed by: Nelson Najera M.D. 12/06/24 20:40 PM Diagnostic Findings EKG as per my interpretation :Rate 55, LAD, LAFB, LBBB
[2024-12-06] MEDS ORDERED: PHARMACIST DISCHARGE MED REC CONSULT PRN (23:12)
[2024-12-06] MEDS ORDERED: PROMETHAZINE 6.25 MG/50.25 ML BAG IV PRN (23:14)
[2024-12-06] MEDS ORDERED: LORazepam 0.5 MG TAB PO PRN (23:14)
--- NOTE | 2024-12-07 00:25 | Magnetic Resonance Report ---
Exam(s): MRI HEAD Without Contrast EXAM: MR Head Without Intravenous Contrast CLINICAL HISTORY: Reason for exam: R blurred vision, dysphasia. TECHNIQUE: Magnetic resonance images of the head/brain without intravenous contrast in multiple planes. COMPARISON: Same-day CT, CTA FINDINGS: Brain: No evidence of acute intracranial hemorrhage. A few foci of susceptibility artifact within the left cerebral hemisphere suggesting remote hypertensive microhemorrhage. No mass effect or midline shift. Age-related cortical cerebral volume loss. Pontine white matter and confluent periventricular and deep cerebral white matter FLAIR signal hyperintensity in keeping with chronic small-vessel ischemic change. Proximal intracranial flow voids appear normal. No diffusion restriction to suggest acute cerebral ischemia. Ventricles: Unremarkable. No hydrocephalus. Bones/joints: Unremarkable. No acute fracture. Sinuses: Unremarkable as visualized. Mastoid air cells: Unremarkable as visualized. No mastoid effusion. Orbits: Lens replacements. IMPRESSION: 1. No diffusion restriction to suggest acute cerebral ischemia. 2. Moderate chronic small-vessel ischemic change. Electronically signed by: Nelson Najera M.D. 12/07/24 00:24 AM
[2024-12-07] MEDS: SODIUM CHLORIDE 0.9% 1,000 ML IV ONE (03:02)
[2024-12-07 06:59] LABS: Hematocrit (blood only) 38.0 % (37.0-47.0); Hemoglobin 12.6 g/dl (12.0-16.0); Immature Granulocytes # (auto) 0.04 K/uL (0.01-0.20); Immature Granulocytes % (auto) 0.6 %; Mean Corpuscular Hemoglobin 30.4 pg (25.0-34.0); Mean Corpuscular Volume 91.6 fL (80.0-100.0); Platelet Count 154 K/uL (130-400); RDW Standard Deviation 44.9 fL (36.4-46.3); Red Blood Count 4.15 M/uL (4.20-5.40); White Blood Count 6.50 K/ul (4.8-10.8)
[2024-12-07 07:28] LABS: Anion Gap 7.0 (3-11); Blood Urea Nitrogen 20.0 mg/dl (6-23); Calcium 9.2 mg/dl (8.6-10.3); Carbon Dioxide 23.0 mmol/L (21-32); Chloride 107.0 mmol/L (98-107); Cholesterol 114.0 mg/dl (0-200); Creatinine Clr Calc Pharmacy 47.9 ml/min; Glucose 115.0 mg/dl (70-99(Fasting)); HDL Cholesterol 47.0 mg/dl; Potassium 4.3 mmol/L (3.5-5.1); Sodium 137.0 mmol/L (136-145); Triglycerides 49.0 mg/dl (0-150)
[2024-12-07] MEDS: PRASugrel TAB 10 MG TAB PO SCH (07:53)
[2024-12-07] MEDS: ACETAMINOPHEN 325 MG TAB PO PRN (07:53)
[2024-12-07] MEDS: ASPIRIN 81 MG ECTAB PO SCH (07:54)
[2024-12-07] MEDS: ATORVASTATIN 40 MG TAB PO SCH (07:54)
[2024-12-07] MEDS: CALCIUM CARBONATE 500 MG CHEWABLE TAB PO PRN (07:54)
[2024-12-07] MEDS: ENOXAPARIN INJ 40 MG/0.4 ML SYR SQ SCH (07:55)
[2024-12-07 08:09] LABS: Hemoglobin A1C 5.2 % (4.5-5.6)
[2024-12-07 08:30] VITALS: RESP 20
--- NOTE | 2024-12-07 10:19 | Electrocardiogram Report ---
Test Reason : Blood Pressure : */* mmHG Vent. Rate : 59 BPM Atrial Rate : 59 BPM P-R Int : 198 ms QRS Dur : 142 ms QT Int : 478 ms P-R-T Axes : 69 -10 128 degrees QTcB Int : 473 ms Sinus bradycardia Left bundle branch block Abnormal ECG No previous ECGs available Confirmed by Abe Gallego ([id number]) on 12/07/2024 10:18:24 AM Referred By: REFERRED SELF Confirmed By: Abe Gallego
--- NOTE | 2024-12-07 11:48 | Hospitalist Progress Note ---
<Statement entered by Richard Yi, DO - 12/07/24 12:50> D/w BLAYNE MRI negative for stroke Vascular imaging showing 50-70% R ICA stenosis. THis could correlate with her R eye vision changes. She should have an optho exam soon to r/o BRAO. She will need vascular follow up as OP regarding her carotid disease as well. already on DAPT, statin. appreciate cardio input Date of Service December 07, 2024 Assessment & Plan (1) Stroke-like symptoms: (2) COPD with emphysema: (3) History of tobacco use: (4) Hypersomnia: Plan Patient is a 84-year-old female who presented to the ED on 12/06/2024 with complaints of dysphagia and right eye blurriness, has a history of CVA on DAPT TIA: Still with right eye blurriness, dysphagia has improved, patient endorses some chronic dysphagia Head MRI is negative, head/neck CTA shows severe right ICA stenosis Patient does report completing a CEA for stenosis about 2 years ago, unsure which side Check carotid ultrasound, await neurology recommendations Continue aspirin/prasugrel/statin Hx COPD: Not in acute exacerbation, continue fluticasone & ellipta Hx hypothyroidism: -Continue levothyroxine Await speech and PT/OT/neuro eval - adc in the next 24 hours. Full code DVT prophylaxis: Lovenox A total of 30 minutes was spent on chart review/reviewing diagnostic data/results and plan of care/discussion with consultants Admission and Anticipated Discharge Date Admission Date: December 06, 2024 Subjective Pt seen and examined - still reports some blurred vision, reports dysphagia has improved, denies any numbness or weakness. Review of Systems Review of Systems: All systems reviewed & are unremarkable except as noted in HPI & below Physical Exam Constitutional: WD/WN, vitals as above Eyes: PERRL, conjunctivae normal, anicteric sclerae (blurry vision ) ENMT: external ear and nose normal, oropharynx normal Neck: trachea midline, no thyromegaly Respiratory: normal respiratory effort, lungs clear to auscultation Cardiovascular: RRR, no murmur, no edema Gastrointestinal (Abdomen): normal bowel sounds, soft, nontender, no hepatosplenomegaly Musculoskeletal: no cyanosis or clubbing, extremities motor strength 5/5 Skin: no rashes, warm and dry Neurologic: PERRL, EOMI, accommodation nl, no face palsy, no dysarthria (r eye blurry vision) Psychiatric: A+Ox3, euthymic affect Genitourinary: no vaginal lesions, no adnexal mass Lymphatic: no cervical or axillary lymphadenopathy Results & Data Results & Data Vital Signs (Past 12 Hours) Vital Signs Temp Pulse Pulse Resp BP Pulse Ox O2 Del Method 12/07/24 11:33 36.7 C 87 20 112/62 97 Room Air 12/07/24 08:29 36.5 C 67 20 132/75 95 Room Air 12/07/24 05:41 64 12/07/24 04:17 36.7 C 70 18 119/71 92 Room Air 12/07/24 00:28 70 12/07/24 00:24 36.5 C 71 18 146/54 H 93 Room Air Laboratory Results Laboratory Results WBC 6.50 K/ul (4.8-10.8) 12/07/24 06:21 RBC 4.15 M/uL (4.20-5.40) L 12/07/24 06:21 Hgb 12.6 g/dl (12.0-16.0) 12/07/24 06:21 POC Hgb 13.9 g/dl (12.0-16.0) 12/06/24 19:49 Hct 38.0 % (37.0-47.0) 12/07/24 06:21 POC Hct 41 % (37-47) 12/06/24 19:49 MCV 91.6 fL (80.0-100.0) 12/07/24 06:21 MCH 30.4 pg (25.0-34.0) 12/07/24 06:21 MCHC 33.2 g/dL (32.0-36.0) 12/07/24 06:21 RDW Std Deviation 44.9 fL (36.4-46.3) 12/07/24 06:21 RDW Coeff of Raquel 13.2 % (11.5-14.5) 12/07/24 06:21 Plt Count 154 K/uL (130-400) 12/07/24 06:21 MPV 9.5 fL (9.4-12.4) 12/07/24 06:21 Immature Gran % (Auto) 0.6 % 12/07/24 06:21 Neut % (Auto) 86.9 % 12/07/24 06:21 Lymph % (Auto) 10.3 % 12/07/24 06:21 Garrard % (Auto) 2.0 % 12/07/24 06:21 Eos % (Auto) 0.0 % 12/07/24 06:21 Baso % (Auto) 0.2 % 12/07/24 06:21 Neut # (Auto) 5.65 K/uL (1.40-6.50) 12/07/24 06:21 Lymph # (Auto) 0.67 K/uL (1.20-3.40) L 12/07/24 06:21 Garrard # (Auto) 0.13 K/uL (0.11-0.59) 12/07/24 06:21 Eos # (Auto) 0.00 K/uL (0.00-0.50) 12/07/24 06:21 Baso # (Auto) 0.01 K/uL (0.00-0.20) 12/07/24 06:21 Immature Gran # (Auto) 0.04 K/uL (0.01-0.20) 12/07/24 06:21 ESR 3 mm/hr (0-30) 12/07/24 06:21 PT 10.6 Seconds (9.0-12.0) 12/06/24 21:27 INR 1.0 (0.9-1.1) 12/06/24 21:27 APTT 26 Seconds (21-31) 12/06/24 21: PTT Ratio 1.0 12/06/24 21: POC Sodium 135 mmol/L (135-144) 12/06/24 19:49 Sodium 137 mmol/L (136-145) 12/07/24 06:21 POC Potassium 5.6 mmol/L (3.3-5.0) H 12/06/24 19:49 Potassium 4.3 mmol/L (3.5-5.1) 12/07/24 06:21 POC Chloride 106 mmol/L (101-112) 12/06/24 19:49 Chloride 107 mmol/L (98-107) 12/07/24 06:21 Carbon Dioxide 23 mmol/L (21-32) 12/07/24 06:21 POC Total CO2 25 mmol/L (24-31) 12/06/24 19:49 Anion Gap 7 (3-11) 12/07/24 06:21 POC Anion Gap 11.0 mmol/L (16-25) L 12/06/24 19:49 POC BUN 32 mg/dl (7-18) H 12/06/24 19:49 BUN 20 mg/dl (6-23) 12/07/24 06:21 Creatinine 0.84 mg/dl (0.6-1.2) 12/07/24 06:21 POC Creatinine 1.2 mg/dl (0.6-1.3) 12/06/24 19:49 Est Cr Clr Drug Dosing 47.9 ml/min 12/07/24 06:21 eGFR 68.91 12/07/24 06:21 BUN/Creatinine Ratio 23.8 (10-20) H 12/07/24 06:21 Glucose 115 mg/dl (70-99(Fasting)) H 12/07/24 06:21 POC Glucose (other) 92 mg/dl (70-99) 12/06/24 19:49 Estimat Average Glucose 103 mg/dl 12/07/24 06:21 Hemoglobin A1c 5.2 % (4.5-5.6) 12/07/24 06:21 Calcium 9.2 mg/dl (8.6-10.3) 12/07/24 06:21 POC Ioniz Calcium Cristobal 1.11 mmol/l (1.12-1.32) L 12/06/24 19:49 Magnesium 2.2 mg/dl (1.7-2.4) 12/06/24 21:27 Total Bilirubin 0.6 mg/dl (0.2-1.0) 12/06/24 19:43 AST 20 U/L (13-39) 12/06/24 21:27 ALT 13 U/L (7-52) 12/06/24 19:43 Alkaline Phosphatase 59 U/L (34-104) 12/06/24 21:27 Troponin I High Sens 6.6 pg/ml (0-14) 12/06/24 19:43 C-Reactive Protein < 0.50 mg/dl (0-0.5) 12/07/24 06:21 Total Protein 7.5 gm/dl (6.0-8.3) 12/06/24 19:43 Albumin 4.2 gm/dl (3.4-5.0) 12/06/24 21:27 Globulin TNP 12/06/24 19:43 Albumin/Globulin Ratio TNP 12/06/24 19:43 Triglycerides 49 mg/dl (0-150) 12/07/24 06:21 Cholesterol 114 mg/dl (0-200) 12/07/24 06:21 LDL Cholesterol, Calc 57 mg/dl 12/07/24 06:21 VLDL Cholesterol, Calc 10 mg/dl (0-30) 12/07/24 06:21 HDL Cholesterol 47 mg/dl 12/07/24 06:21 Cholesterol/HDL Ratio 2.4 (0-5) 12/07/24 06:21 Blood Type A Positive 12/06/24 21: Antibody Screen NEGATIVE 12/06/24 21:27 Impressions Chest X-Ray 12/06/24 19:38 Exam(s): XR CXR 1 VIEW EXAM: XR Chest, 1 View CLINICAL HISTORY: Reason for exam: neuro deficit, acute stroke suspected. TECHNIQUE: Frontal view of the chest. COMPARISON: No relevant prior studies available. FINDINGS: Lungs: No consolidation. Pleural space: No significant pleural effusion. No pneumothorax. Heart: No cardiomegaly or pulmonary vascular congestion. Bones/joints: No acute fracture. No dislocation. IMPRESSION: No evidence of acute cardiopulmonary disease. Electronically signed by: Nelson Najera M.D. 12/06/24 21:[address] 12/06/24 19:38 CR Exam(s): CT HEAD Without Contrast EXAM: CT Head Without Intravenous Contrast CLINICAL HISTORY: Reason for exam: neuro deficit, acute stroke suspected. TECHNIQUE: Axial computed tomography images of the head/brain without intravenous contrast. CTDI is 38.43 mGy and DLP is 985.28 mGy-cm. Automated exposure control was utilized for the study. A dose lowering technique was utilized adhering to the principles of ALARA. COMPARISON: None. FINDINGS: Brain: Age-related parenchymal volume loss. Periventricular and deep cerebral white matter hypoattenuation suggesting chronic small vessel ischemic change. Ubckley-white matter differentiation maintained. No hemorrhage, mass effect, parenchymal edema, or midline shift. Ventricles: No hydrocephalus. Bones/joints: No acute fracture. Soft tissues: Unremarkable. Vasculature: Intracranial atherosclerosis. Sinuses: Unremarkable as visualized. Mastoid air cells: No significant mastoid effusion. Orbits: Lens replacements. IMPRESSION: No acute intracranial process. Communications: Call Doctor Stroke Electronically signed by: Nelson Najera M.D. 12/06/24 20:36 PM Head CTA 12/06/24 19:38 CR Exam(s): CTA HEAD With Contrast IV Amt: 119ml optiray 320 EXAM: CT Angiography Head With Intravenous Contrast CLINICAL HISTORY: Reason for exam: neuro deficit, acute stroke suspected. TECHNIQUE: Axial computed tomographic angiography images of the head with intravenous contrast. CTDI is 38.43 mGy and DLP is 985.28 mGy-cm. Automated exposure control was utilized for the study. A dose lowering technique was utilized adhering to the principles of ALARA. MIP reconstructed images were created and reviewed. CONTRAST: Patient received 119ml optiray 320 of IV contrast COMPARISON: Same-day head CT. FINDINGS: Right internal carotid artery: Extensive calcific plaquing intracranial right ICA producing mild stenosis in the cavernous segment. No aneurysm. Right anterior cerebral artery: Unremarkable. No occlusion or significant stenosis. No aneurysm. Right middle cerebral artery: Unremarkable. No occlusion or significant stenosis. No aneurysm. Right posterior cerebral artery: Unremarkable. No occlusion or significant stenosis. No aneurysm. Right vertebral artery: Unremarkable as visualized. Left internal carotid artery: Extensive calcific plaquing intracranial left ICA without significant stenosis. No aneurysm. Left anterior cerebral artery: Unremarkable. No occlusion or significant stenosis. No aneurysm. Left middle cerebral artery: Unremarkable. No occlusion or significant stenosis. No aneurysm. Left posterior cerebral artery: Unremarkable. No occlusion or significant stenosis. No aneurysm. Left vertebral artery: Unremarkable as visualized. Basilar artery: Unremarkable. No occlusion or significant stenosis. No aneurysm. IMPRESSION: Patent intracranial circulation. Communications: Call Doctor Stroke Electronically signed by: Nelson Najera M.D. 12/06/24 20:38 PM Neck CTA 12/06/24 19:38 CR Exam(s): CTA NECK With Contrast IV Amt: 119ml optiray 320 EXAM: CT Angiography Neck With Intravenous Contrast CLINICAL HISTORY: Reason for exam: neuro deficit, acute stroke suspected. TECHNIQUE: Routine carotid CT angiography protocol was performed with intravenous contrast. NASCET criteria using the distal ICAs for comparison were used for evaluation of stenoses. CTDI is 38.43 mGy and DLP is 985.28 mGy-cm. Automated exposure control was utilized for the study. A dose lowering technique was utilized adhering to the principles of ALARA. MIP reconstructed images were created and reviewed. CONTRAST: Patient received 119ml optiray 320 of IV contrast COMPARISON: None. FINDINGS: VASCULATURE: Right common carotid artery: Unremarkable. No occlusion or significant stenosis. No dissection. Right internal carotid artery: Calcific plaque producing severe stenosis of the right ICA origin. No dissection. Right external carotid artery: Stenotic origin. No occlusion. Right vertebral artery: Unremarkable. No occlusion or significant stenosis. No dissection. Left common carotid artery: Patent stented distal left common carotid artery. No occlusion or significant stenosis. No dissection. Left internal carotid artery: Patent stented proximal left ICA. Extracranial segment is patent with no occlusion or significant stenosis. No dissection. Left external carotid artery: Stenotic origin. No occlusion. Left vertebral artery: Unremarkable. No occlusion or significant stenosis. No dissection. Aorta: Bovine aortic arch anatomy. NECK: Bones/joints: Unremarkable. No acute fracture. Soft tissues: Unremarkable. Lung apices: Clear. CAROTID STENOSIS REFERENCE USING NASCET CRITERIA: % ICA stenosis = (1 - narrowest ICA diameter/diameter of distal cervical ICA) x 100. Mild - <50% stenosis. Moderate - 50-69% stenosis. Severe - 70-94% stenosis. Near occlusion - 95-99% stenosis. Occluded - 100% stenosis. IMPRESSION: Calcific plaque producing severe stenosis at the right ICA origin. Communications: Call Doctor Stroke Electronically signed by: Nelson Najera M.D. 12/06/24 20:40 PM Brain MRI 12/06/24 23:12 Exam(s): MRI HEAD Without Contrast EXAM: MR Head Without Intravenous Contrast CLINICAL HISTORY: Reason for exam: R blurred vision, dysphasia. TECHNIQUE: Magnetic resonance images of the head/brain without intravenous contrast in multiple planes. COMPARISON: Same-day CT, CTA FINDINGS: Brain: No evidence of acute intracranial hemorrhage. A few foci of susceptibility artifact within the left cerebral hemisphere suggesting remote hypertensive microhemorrhage. No mass effect or midline shift. Age-related cortical cerebral volume loss. Pontine white matter and confluent periventricular and deep cerebral white matter FLAIR signal hyperintensity in keeping with chronic small-vessel ischemic change. Proximal intracranial flow voids appear normal. No diffusion restriction to suggest acute cerebral ischemia. Ventricles: Unremarkable. No hydrocephalus. Bones/joints: Unremarkable. No acute fracture. Sinuses: Unremarkable as visualized. Mastoid air cells: Unremarkable as visualized. No mastoid effusion. Orbits: Lens replacements. IMPRESSION: 1. No diffusion restriction to suggest acute cerebral ischemia. 2. Moderate chronic small-vessel ischemic change. Electronically signed by: Nelson Najera M.D. 12/07/24 00:24 AM
--- NOTE | 2024-12-07 12:08 | Ultrasound Report ---
CAROTID ARTERY ULTRASOUND CLINICAL HISTORY: severe ica stenosis COMPARISON STUDY: CTA of 12/06/2024 TECHNIQUE: Real-time, grayscale, and color Doppler sonography of the carotid and vertebral arteries w as performed. Images were viewed in the transverse and longitudinal planes. FINDINGS: There is antegrade flow in the vertebral arteries. No significant narrowing seen at the lef t common or internal carotid arteries. The left carotid stent is widely patent. There is plaque at the right carotid bulb. Velocity at the right carotid bulb is 161 cm/s. ICA to CCA ratio is 2.4. This is consistent with 50-70% stenosis. No other significant stenosis is seen at the right common or internal carotid arteries. IMPRESSION: 50-70% stenosis proximal right ICA. ACT 112: Negative or not required by law. Electronically signed by: Pal Nichols M.D. 12/07/2024 12:07 PM
--- NOTE | 2024-12-07 13:03 | Neurology Consultation ---
Date of Consultation December 07, 2024 Assessment & Plan (1) Vision loss of right eye: I suspect right central retinal artery occlusion. MRI brain personally reviewed and unremarkable. CT angiogram head and neck reveals severe right ICA stenoses, estimated 50-70% on carotid ultrasound. The patient is not a surgical candidate secondary to advanced age and baseline debility. Recommend maximal medical management. -continue aspirin 81 mg daily -add atorvastatin 40 mg daily -continue ezetimibe - if patient develops side effects to atorvastatin, would recommend to discontinue - patient is currently taking prasugrel which could be continued for now. I will call her surgical device sales representative Dr. Lyons to inquire if this could be switch to clopidogrel which would be better for stroke prevention. Per patient, her physician told her that clopidogrel is not the most effective medication for her I am not sure if she had P2Y12 testing. If this is the case, then ticagrelor would be the recommended alternative from the stroke perspective. -recommend outpatient follow up with Neuro-Ophthalmology -eye patch can be worn for comfort but will need to alternate between eyes (2) Headache: patient is reporting 7/10 headache. - continue Tylenol 1000 mg - can add modified migraine cocktail with Compazine, magnesium, and Benadryl I communicated my recommendations to Richard Yi via tiger text. Telehealth Consultation Telehealth Information Telehealth Information: I performed this visit using a real-time telehealth connection between my location and the patients location ([facility]). After connecting through interactive tele-video, patient was identified by name and date of and/or wristband check.Patient (or authorized healthcare payable representative) was informed that this was a telemedicine visit and it was being conducted confidentially over secure lines. My office door was closed and no one else was present in the room with me.Patient (or authorized healthcare payable representative) provided consent to proceed with the visit, expressed an understanding of privacy and security of the telemedicine visit, and gave permission to have a hospital payable representative in the room in order to assist with the visit and to conduct portions of the visit, as needed. I informed the patient (or authorized healthcare payable representative) that I reviewed their record and presented the opportunity for them to ask any questions regarding the visit today. The patient agreed to participate. History of Present Illness Reason for Consultation: right eye blurred vision Attending Physician: Richard Yi, DO History of Present Illness Bibi Loomis is an 84-year-old female with a past medical history of chronic systolic heart failure (EF 45 to 50%, TTE 2024), CAD status post stent (2023), valvular heart disease (mild MR/trace TR), PAF, PVD, hypertension, hyperlipidemia, COPD, pulmonary nodules, hypothyroidism, gastric ulcer, IBS, MGUS, PMR, giant cell arteritis on Actemra as per records, gait ataxia disorder as per records, anxiety/mood disorder, past tobacco abuse who presented to [facility] on 12/06/2024 referred from her ophthalmology office for acute onset dizziness and right eye vision loss. CT head was unremarkable. CT angiogram head and neck revealed severe right ICA stenoses. Per report, the patient was outside of windows for TNK. MRI brain was personally reviewed and unremarkable. Carotid ultrasound revealed 50-70% stenoses right ICA. Prior to admission, patient was taking aspirin and prasugrel. The patient is taking ezetimibe. She is unable to tell me if she has had prior side effects from statins. The patient also reports a 7/10 headache which has been treated with Tylenol. Allergies Allergy/AdvReac Type Severity Reaction Status Date / Time bee venom protein (honey bee) Allergy Unknown HIVES Verified 12/07/24 09:41 codeine Allergy Unknown HIVES Verified 12/07/24 09:41 cortisone Allergy Unknown Verified 12/07/24 09:41 hydromorphone [From Dilaudid] Allergy Unknown Verified 12/07/24 09:41 iodine Allergy Unknown Verified 12/07/24 09:41 methylprednisolone Allergy Unknown RASH Verified 12/07/24 09:41 morphine Allergy Unknown "GO BAZERK" Verified 12/07/24 09:41 Opioids - Morphine Analogues Allergy Unknown Verified 12/07/24 09:41 shellfish derived Allergy Unknown RASH Verified 12/07/24 09:41 Home Medications Medication Instructions Recorded Confirmed Type aspirin 81 mg tablet 81 mg PO BID 12/26/18 12/07/24 History atorvastatin 40 mg tablet 40 mg PO DAILY #30 tabs 12/26/18 12/07/24 History citalopram 20 mg tablet 20 mg PO DAILY #90 tabs 12/26/18 12/07/24 History coenzyme Q10 100 mg capsule 100 mg PO DAILY 12/26/18 12/07/24 History epinephrine 0.3 mg/0.3 mL 0.3 mg IM DIRECTED PRN Allergic 12/26/18 12/07/24 History injection, auto-injector Reaction #1 ea levalbuterol HCl 1.25 mg/3 mL 1.25 mg inhalation DIRECTED PRN 12/26/18 12/07/24 History solution for nebulization Shortness Of Breath Or Wheezing melatonin 3 mg tablet 3 mg PO DAILY 12/26/18 12/07/24 History metoprolol succinate 25 mg 12.5 mg PO DAILY 12/26/18 12/07/24 History tablet,extended release 24 hr nitroglycerin 0.4 mg sublingual 0.4 mg sublingual DIRECTED PRN 12/26/18 12/07/24 History tablet Chest Pain cyanocobalamin (vitamin B-12) 1,000 mcg PO DAILY 09/11/19 12/07/24 History 1,000 mcg capsule Flutter Valve #1 ea 04/06/22 06/23/24 Rx tocilizumab 162 mg/0.9 mL 0 mg subcut WK 03/13/23 12/07/24 History subcutaneous syringe (Actemra) furosemide 20 mg tablet (Lasix) 20 mg PO 3XWK 03/20/24 12/07/24 History prasugrel HCl 10 mg tablet 10 mg PO DAILY 03/20/24 12/07/24 History (Effient) albuterol sulfate 90 mcg/actuation 2 puff inhalation Q6H PRN 06/25/24 12/07/24 Rx aerosol inhaler Shortness Of Breath Or Wheezing #18 grams fluticasone 250 mcg-salmeterol 50 1 inh inhalation BID #60 ea 06/25/24 12/07/24 Rx mcg/dose blistr powdr for inhalation (Wixela Inhub) ipratropium 0.5 mg-albuterol 3 mg 3 ml inhalation Q8H PRN shortness 07/06/24 12/07/24 Rx (2.5 mg base)/3 mL nebulization of breath or wheezing #180 mL soln alendronate 70 mg tablet 70 mg PO WK 12/07/24 12/07/24 History diclofenac sodium 1 % topical gel 2 g topical QID 12/07/24 12/07/24 History empagliflozin 10 mg tablet 10 mg PO DAILY 12/07/24 12/07/24 History (Jardiance) ezetimibe 10 mg tablet 10 mg PO DAILY 12/07/24 12/07/24 History levothyroxine 100 mcg tablet 100 mcg PO 6XWK 12/07/24 12/07/24 History levothyroxine 100 mcg tablet 150 mcg PO WK 12/07/24 12/07/24 History omega 3 350 mg-dha 235 mg-epa 90 1 cap PO DAILY 12/07/24 12/07/24 History mg-fish oil 597 mg capsule,delay rel (Ingalls-3) pantoprazole 20 mg tablet,delayed 20 mg PO DAILY 12/07/24 12/07/24 History release ranolazine 500 mg tablet,extended 500 mg PO DAILY 12/07/24 12/07/24 History release,12 hr umeclidinium 62.5 mcg/actuation 0 inh inhalation DAILY 12/07/24 12/07/24 History blister powder for inhalation (Incruse Ellipta) Patient History Social History Smoking Status: Former smoker Tobacco Type: Cigarettes Age Started Using Tobacco: 14; Age Quit Using Tobacco: 62; packs per day: 1; Hx Alcohol Use: No Hx Substance Use: No Preferred Language: Namibian Communication Ability: Effective Tank Calibrator Required: No Beliefs That Will Affect Care: None Current Living Situation: Spouse Other Information That Helps Us Care for You: No Feels Safe at Home: Yes Safety Concerns: Feels Safe At This Time Assistive Devices: Denture - Upper, Denture - Lower and Glasses Review of Systems ROS reviewed and negative except as above. Physical Exam Physical Exam: General Appearance: Alert HEENT: anicteric sclera, no scleral injection Lungs: respirations appear comfortable, no obvious increased work of breathing Extremities: No cyanosis or fingernail clubbing Skin: No rashes in exposed skin areas Objective Limited due to Televideo encounter Physical Exam: General Appearance: Alert Neurological Examination: Mental status: Alert and oriented. No dysarthria. Cranial Nerves: Right eye blurred vision. Midline gaze. Face symmetric. Sensory: Normal sensory exam to light touch. Motor:Absent pronator drift. Cerebellar: Rapid alternating movements are intact. Results & Data Vital Signs (Past 12 Hours) Vital Signs Temp Pulse Pulse Resp BP Pulse Ox O2 Del Method 12/07/24 11:33 36.7 C 87 20 112/62 97 Room Air 12/07/24 08:29 36.5 C 67 20 132/75 95 Room Air 12/07/24 05:41 64 12/07/24 04:17 36.7 C 70 18 119/71 92 Room Air Laboratory Results 12/07/24 12/06/24 12/06/24 06:21 21:27 19:49 WBC 6.50 RBC 4.15 L Hgb 12.6 POC Hgb 13.9 Hct 38.0 POC Hct 41 MCV 91.6 MCH 30.4 MCHC 33.2 RDW Std Deviation 44.9 RDW Coeff of Raquel 13.2 Plt Count 154 MPV 9.5 Immature Gran % (Auto) 0.6 Neut % (Auto) 86.9 Lymph % (Auto) 10.3 Marin % (Auto) 2.0 Eos % (Auto) 0.0 Baso % (Auto) 0.2 Neut # (Auto) 5.65 Lymph # (Auto) 0.67 L Marin # (Auto) 0.13 Eos # (Auto) 0.00 Baso # (Auto) 0.01 Immature Gran # (Auto) 0.04 ESR 3 PT 10.6 INR 1.0 APTT 26 PTT Ratio 1.0 POC Sodium 135 Sodium 137 135 L POC Potassium 5.6 H Potassium 4.3 4.2 POC Chloride 106 Chloride 107 Carbon Dioxide 23 POC Total CO2 25 Anion Gap 7 POC Anion Gap 11.0 L POC BUN 32 H BUN 20 Creatinine 0.84 POC Creatinine 1.2 Est Cr Clr Drug Dosing 47.9 eGFR 68.91 BUN/Creatinine Ratio 23.8 H Glucose 115 H POC Glucose (other) 92 Estimat Average Glucose 103 Hemoglobin A1c 5.2 Calcium 9.2 POC Ioniz Calcium Cristobal 1.11 L Magnesium 2.2 Total Bilirubin AST 20 ALT Alkaline Phosphatase 59 Troponin I High Sens C-Reactive Protein < 0.50 Total Protein Albumin 4.2 Globulin Albumin/Globulin Ratio Triglycerides 49 Cholesterol 114 LDL Cholesterol, Calc 57 VLDL Cholesterol, Calc 10 HDL Cholesterol 47 Cholesterol/HDL Ratio 2.4 Blood Type A Positive Antibody Screen NEGATIVE 12/06/24 19:43 WBC 4.33 L RBC 4.45 Hgb 13.6 POC Hgb Hct 40.9 POC Hct MCV 91.9 MCH 30.6 MCHC 33.3 RDW Std Deviation 44.9 RDW Coeff of Raquel 13.2 Plt Count 163 MPV 9.5 Immature Gran % (Auto) 0.5 Neut % (Auto) 54.1 Lymph % (Auto) 31.6 Marin % (Auto) 11.8 Eos % (Auto) 1.8 Baso % (Auto) 0.2 Neut # (Auto) 2.34 Lymph # (Auto) 1.37 Marin # (Auto) 0.51 Eos # (Auto) 0.08 Baso # (Auto) 0.01 Immature Gran # (Auto) 0.02 ESR PT Cancelled INR Cancelled APTT Cancelled PTT Ratio Cancelled POC Sodium Sodium TNP POC Potassium Potassium TNP POC Chloride Chloride 103 Carbon Dioxide 25 POC Total CO2 Anion Gap TNP POC Anion Gap POC BUN BUN 22 Creatinine 0.98 POC Creatinine Est Cr Clr Drug Dosing 40.9 eGFR 57.27 BUN/Creatinine Ratio 22.4 H Glucose 91 POC Glucose (other) Estimat Average Glucose Hemoglobin A1c Calcium 9.5 POC Ioniz Calcium Cristobal Magnesium TNP Total Bilirubin 0.6 AST TNP ALT 13 Alkaline Phosphatase TNP Troponin I High Sens 6.6 C-Reactive Protein Total Protein 7.5 Albumin TNP Globulin TNP Albumin/Globulin Ratio TNP Triglycerides Cholesterol LDL Cholesterol, Calc VLDL Cholesterol, Calc HDL Cholesterol Cholesterol/HDL Ratio Blood Type Antibody Screen Diagnostic Findings Head CT 12/06/24 19:38 CLINICAL HISTORY: Reason for exam: neuro deficit, acute stroke suspected. IMPRESSION: No acute intracranial process. Electronically signed by: Nelson Najera M.D. 12/06/24 20:36 PM Head CTA 12/06/24 19:38 CLINICAL HISTORY: Reason for exam: neuro deficit, acute stroke IMPRESSION: Patent intracranial circulation. Electronically signed by: Nelson Najera M.D. 12/06/24 20:38 PM Neck CTA 12/06/24 19:38 CLINICAL HISTORY: Reason for exam: neuro deficit, acute stroke suspected. IMPRESSION: Calcific plaque producing severe stenosis at the right ICA origin. Electronically signed by: Nelson Najera M.D. 12/06/24 20:40 PM Brain MRI 12/06/24 23:12 CLINICAL HISTORY: Reason for exam: R blurred vision, dysphasia. IMPRESSION: 1. No diffusion restriction to suggest acute cerebral ischemia. 2. Moderate chronic small-vessel ischemic change. Electronically signed by: Nelson Najera M.D. 12/07/24 00:24 AM Carotid Doppler Study 12/07/24 07:46 CLINICAL HISTORY: severe ica stenosis IMPRESSION: 50-70% stenosis proximal right ICA. Electronically signed by: Pal Nichols M.D. 12/07/2024 12:07 PM Medications Administered Home Medications Medication Instructions Recorded Confirmed Last Taken aspirin 81 mg tablet 81 mg PO BID 12/26/18 12/07/24 Unknown atorvastatin 40 mg tablet 40 mg PO DAILY #30 tabs 12/26/18 12/07/24 Unknown citalopram 20 mg tablet 20 mg PO DAILY #90 tabs 12/26/18 12/07/24 Unknown coenzyme Q10 100 mg capsule 100 mg PO DAILY 12/26/18 12/07/24 Unknown epinephrine 0.3 mg/0.3 mL 0.3 mg IM DIRECTED PRN Allergic 12/26/18 12/07/24 Unknown injection, auto-injector Reaction #1 ea levalbuterol HCl 1.25 mg/3 mL 1.25 mg inhalation DIRECTED PRN 12/26/18 12/07/24 Unknown solution for nebulization Shortness Of Breath Or Wheezing melatonin 3 mg tablet 3 mg PO DAILY 12/26/18 12/07/24 Unknown metoprolol succinate 25 mg 12.5 mg PO DAILY 12/26/18 12/07/24 Unknown tablet,extended release 24 hr nitroglycerin 0.4 mg sublingual 0.4 mg sublingual DIRECTED PRN 12/26/18 12/07/24 Unknown tablet Chest Pain cyanocobalamin (vitamin B-12) 1,000 mcg PO DAILY 09/11/19 12/07/24 Unknown 1,000 mcg capsule Flutter Valve #1 ea 04/06/22 06/23/24 Unknown tocilizumab 162 mg/0.9 mL 0 mg subcut WK 03/13/23 12/07/24 Unknown subcutaneous syringe (Actemra) furosemide 20 mg tablet (Lasix) 20 mg PO 3XWK 03/20/24 12/07/24 Unknown prasugrel HCl 10 mg tablet 10 mg PO DAILY 03/20/24 12/07/24 Unknown (Effient) albuterol sulfate 90 mcg/actuation 2 puff inhalation Q6H PRN 06/25/24 12/07/24 Unknown aerosol inhaler Shortness Of Breath Or Wheezing #18 grams fluticasone 250 mcg-salmeterol 50 1 inh inhalation BID #60 ea 06/25/24 12/07/24 Unknown mcg/dose blistr powdr for inhalation (Wixela Inhub) ipratropium 0.5 mg-albuterol 3 mg 3 ml inhalation Q8H PRN shortness 07/06/24 12/07/24 Unknown (2.5 mg base)/3 mL nebulization of breath or wheezing #180 mL soln alendronate 70 mg tablet 70 mg PO WK 12/07/24 12/07/24 Unknown diclofenac sodium 1 % topical gel 2 g topical QID 12/07/24 12/07/24 Unknown empagliflozin 10 mg tablet 10 mg PO DAILY 12/07/24 12/07/24 Unknown (Jardiance) ezetimibe 10 mg tablet 10 mg PO DAILY 12/07/24 12/07/24 Unknown levothyroxine 100 mcg tablet 100 mcg PO 6XWK 12/07/24 12/07/24 Unknown levothyroxine 100 mcg tablet 150 mcg PO WK 12/07/24 12/07/24 Unknown omega 3 350 mg-dha 235 mg-epa 90 1 cap PO DAILY 12/07/24 12/07/24 Unknown mg-fish oil 597 mg capsule,delay rel (Ingalls-3) pantoprazole 20 mg tablet,delayed 20 mg PO DAILY 12/07/24 12/07/24 Unknown release ranolazine 500 mg tablet,extended 500 mg PO DAILY 12/07/24 12/07/24 Unknown release,12 hr umeclidinium 62.5 mcg/actuation 0 inh inhalation DAILY 12/07/24 12/07/24 Unknown blister powder for inhalation (Incruse Ellipta) Active Medications Generic Name Dose Route Start Last Admin Trade Name Freq PRN Reason Stop Dose Admin Acetaminophen 650 mg 12/06/24 23:14 12/07/24 07:53 Acetaminophen 325 Mg Tab PO 01/05/25 23:13 650 mg QID PRN Administration pain/fever Aspirin 81 mg 12/07/24 09:00 12/07/24 07:54 Aspirin 81 Mg Ectab PO 01/06/25 08:59 81 mg DAILY KIAH Administration Atorvastatin Calcium 80 mg 12/07/24 09:00 12/07/24 07:54 Atorvastatin 40 Mg Tab PO 01/06/25 08:59 80 mg QAM KIAH Administration Calcium Carbonate 1,500 mg 12/07/24 07:39 12/07/24 07:54 Calcium Carbonate 500 Mg Chewable Tab PO 01/06/25 07:38 1,500 mg TID PRN Administration Indigestion Enoxaparin Sodium 40 mg 12/07/24 09:00 12/07/24 07:55 Enoxaparin Inj 40 Mg/0.4 Ml Syr SQ 01/06/25 08:59 40 mg QAM KIAH Administration Sodium Chloride 1,000 mls @ 60 mls/hr 12/07/24 02:25 12/07/24 03:02 Nss IV 12/07/24 19:04 60 mls/hr .[id number] ONE Administration Prasugrel 10 mg 12/07/24 09:00 12/07/24 07:53 Prasugrel Tab 10 Mg Tab PO 01/06/25 08:59 10 mg QAM KIAH Administration
--- NOTE | 2024-12-07 15:19 | Discharge Summary ---
<Statement entered by Richard Yi, DO - 12/07/24 16:29> Seen and examined this afternoon Still with R vision blurriness. she had a reassuring eye exam yesterday. MRI without acute pathology. she has a history of GCA but is on immunotherapy. her ESR is normal, essentially ruling out GCA flare. she is feeling well overall and wishes to go home. d/w tele neurology. d/w and daughter at bedside. She will f/u with neuro optho and her vascular team as OP. 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 The patient continues to complain of right eye blurriness. Her dysphagia has improved. She was seen by speech that recommended a regular diet on discharge. Patient had a head MRI that was negative for acute ischemic stroke. The patient's head/neck CTA shows severe right ICA stenosis. This was estimated 50- 70% on carotid ultrasound. Neurology was consulted, the patient is not a surgical candidate secondary to advanced age and baseline ability. Recommendations following discharge per neurology include continuing aspirin 81 mg daily, atorvastatin 40 mg daily, continuing Zetia. The patient is currently on aspirin and prasugrel. Neurology recommending switching prasugrel to Plavix which would be better for stroke prevention. If the patient's web support engineer does not agree with this, neurology recommending ticagrelor. Neurology also recommending outpatient follow-up with neuro-ophthalmology. Recommended eyepatch for comfort alternating between eyes. Patient seen by physical therapy that recommended rehab. After discussion with the patient, the patient prefers to go home. She has a walker at home and is refusing rehab or home health services at this time. The patient's labs/vitals are stable. She is stable for discharge home today. She has to follow-up with PCP within 1 week of discharge. She will follow-up with neurology within 1 month of discharge. She will follow-up with neuro-ophthalmology as soon as possible after discharge. She will need a vascular outpatient follow-up for ICA stenosis. Her medications were not changed on DC, will need to follow up with cardiology to discuss changing anti-platelet medications Notes For Next Care Provider Medication Changes From Visit No medication changes, consider changing DAPT outpatient per neuro recommendations as stated above Admission HPI Per Admitting Provider History obtained from patient and records. Medical history significant for chronic systolic heart failure (EF 45 to 50%, TTE 2024), CAD status post stent (2023), valvular heart disease (mild MR/trace TR), PAF, PVD, hypertension, hyperlipidemia, COPD, pulmonary nodules, hypothyroidism, gastric ulcer, IBS, MGUS, PMR, giant cell arteritis on Actemra as per records, gait ataxia disorder as per records, anxiety/mood disorder, past tobacco abuse. Patient had sudden onset blurred vision on right eye around 3 PM today. Had trouble getting the right words out. No eye pain. No unusual headaches. No slurred speech, focal arm or leg weakness. Usual gait instability as per patient. Denies chest pain, SOB. Patient's local wheel braider recommended evaluation at the clinic. Automatic Profile Sander Operator recommended ER evaluation for stroke workup. Highest SBP of 180s documented at the ER. Medical History as above Surgical History : Temporal artery biopsy, back surgery, appendectomy, cholecystectomy, cystocele/rectocele repair, finger trigger release, NIRMALA Family History : Heart disease Personal/Social history : Past tobacco abuse, no EtOH intake, retired school cafeteria employee Discharge Exam Constitutional WD/WN, vitals as above Eyes PERRL, conjunctivae normal, anicteric sclerae (blurry vision ) ENMT external ear and nose normal, oropharynx normal Neck trachea midline, no thyromegaly Respiratory normal respiratory effort, lungs clear to auscultation Cardiovascular RRR, no murmur, no edema Gastrointestinal (Abdomen) normal bowel sounds, soft, nontender, no hepatosplenomegaly Musculoskeletal no cyanosis or clubbing, extremities motor strength 5/5 Skin no rashes, warm and dry Neurologic PERRL, EOMI, accommodation nl, no face palsy, no dysarthria (r eye blurry vision) Psychiatric A+Ox3, euthymic affect Genitourinary no vaginal lesions, no adnexal mass Lymphatic no cervical or axillary lymphadenopathy Updated Medication List Medication Instructions Recorded Confirmed Type aspirin 81 mg tablet 81 mg PO BID 12/26/18 12/07/24 History atorvastatin 40 mg tablet 80 mg PO HS #30 tabs 12/26/18 12/07/24 History citalopram 20 mg tablet 20 mg PO DAILY #90 tabs 12/26/18 12/07/24 History coenzyme Q10 100 mg capsule 100 mg PO HS 12/26/18 12/07/24 History epinephrine 0.3 mg/0.3 mL 0.3 mg IM DIRECTED PRN Allergic 12/26/18 12/07/24 History injection, auto-injector Reaction #1 ea levalbuterol HCl 1.25 mg/3 mL 1.25 mg inhalation DIRECTED PRN 12/26/18 12/07/24 History solution for nebulization Shortness Of Breath Or Wheezing melatonin 3 mg tablet 3 mg PO HS 12/26/18 12/07/24 History metoprolol succinate 25 mg 12.5 mg PO HS 12/26/18 12/07/24 History tablet,extended release 24 hr nitroglycerin 0.4 mg sublingual 0.4 mg sublingual DIRECTED PRN 12/26/18 12/07/24 History tablet Chest Pain cyanocobalamin (vitamin B-12) 2,500 mcg PO DAILY 09/11/19 12/07/24 History 1,000 mcg capsule Flutter Valve #1 ea 04/06/22 06/23/24 Rx tocilizumab 162 mg/0.9 mL 0 mg subcut WK 03/13/23 12/07/24 History subcutaneous syringe (Actemra) furosemide 20 mg tablet (Lasix) 20 mg PO 3XWK 03/20/24 12/07/24 History prasugrel HCl 10 mg tablet 10 mg PO DAILY 03/20/24 12/07/24 History (Effient) albuterol sulfate 90 mcg/actuation 2 puff inhalation Q6H PRN 06/25/24 12/07/24 Rx aerosol inhaler Shortness Of Breath Or Wheezing #18 grams fluticasone 250 mcg-salmeterol 50 1 inh inhalation BID #60 ea 06/25/24 12/07/24 Rx mcg/dose blistr powdr for inhalation (Wixela Inhub) ipratropium 0.5 mg-albuterol 3 mg 3 ml inhalation Q8H PRN shortness 07/06/24 12/07/24 Rx (2.5 mg base)/3 mL nebulization of breath or wheezing #180 mL soln alendronate 70 mg tablet 70 mg PO WK 12/07/24 12/07/24 History diclofenac sodium 1 % topical gel 2 g topical QID 12/07/24 12/07/24 History empagliflozin 10 mg tablet 10 mg PO DAILY 12/07/24 12/07/24 History (Jardiance) ezetimibe 10 mg tablet 10 mg PO DAILY 12/07/24 12/07/24 History levothyroxine 100 mcg tablet 100 mcg PO 6XWK 12/07/24 12/07/24 History levothyroxine 100 mcg tablet 150 mcg PO WK 12/07/24 12/07/24 History omega 3 350 mg-dha 235 mg-epa 90 1 cap PO DAILY 12/07/24 12/07/24 History mg-fish oil 597 mg capsule,delay rel (Dalton-3) pantoprazole 20 mg tablet,delayed 20 mg PO DAILY 12/07/24 12/07/24 History release ranolazine 500 mg tablet,extended 500 mg PO HS 12/07/24 12/07/24 History release,12 hr umeclidinium 62.5 mcg/actuation 0 inh inhalation DAILY 12/07/24 12/07/24 History blister powder for inhalation (Incruse Ellipta) Hospital Stay Data Consultations 12/06/24 20:52 ED Decision to Admit Stat 12/06/24 23:13 Consult Neurology Routine Diagnostic Imagining Performed 12/06/24 19:38 CT angio head w con Stat CT angio neck with con Stat CT head/brain wo con Stat 12/06/24 23:12 MR brain wo con Routine 12/07/24 07:46 US carotid doppler BI Routine Pending Results Patient Have Any Pending Studies at Discharge: No Discharge Instructions Given to Patient (Per Discharging Provider) Please follow-up with your PCP within 1 week of discharge. You will need follow-up with vascular outpatient neuro-ophthalmology outpatient. Their offices will call you to schedule an appointment. Your medications have been adjusted at discharge. Please return back to the ED with worsening symptoms. Total Time Total Time Spent Total Time Spent (In Minutes): 45 Total Time Includes: Examination of the Patient, Discharge Planning, Medication Reconciliation, Communication With Other Providers and Other
[2024-12-07 15:33] VITALS: BP 124/70; PULSE 73; TEMP 97.9; O2SAT 92
== END 2024-12-07 17:06 | disposition home or self-care (01) ==
LOC: ED 19:25 → 2W 19:25